=== PATIENT | female | born 1975 | race African-American/Black ===

== ENCOUNTER → 2022-11-22 12:30 | Outpatient (BNV) | payer OTHER, SELFPAY | PROVIDERS: Visit Provider Psychiatry & Neurology Psychiatry | DX: F43.11 Post-traumatic stress disorder, acute (principal); F32.2 Major depressive disorder, single episode, severe without psychotic features | CPT/HCPCS: 99214 ==

== ENCOUNTER 2022-11-29 12:30 | Outpatient (RCR) | payer OTHER, SELFPAY ==
[2022-11-22 11:42] VITALS: BMI 30.6
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
[2022-11-22 13:17] VITALS: BP 130/80; PULSE 82; TEMP 36.6
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
--- NOTE | 2022-11-23 17:10 | HO.PHP ---
Clients case was reviewed and opened today in treatment team.
--- NOTE | 2022-11-27 14:10 | HO.PHP ---
[facility] staff attempted to reach out to Diane to follow up with her regarding how she was doing since she left upset during the third group. Diane's phone went right to a busy tone and the clinician was unable to leave a message. [facility] staff will continue to make outreach attempts.
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
--- NOTE | 2022-11-28 08:30 | HO.PHP ---
[facility] staff faxed over referral for med management for Diane Khan. [facility] staff is awaiting scheduled appointment date and time.
--- NOTE | 2022-11-28 16:16 | HO.PHP ---
[facility] staff attempted to contact Diane's OP therapist Dr. Deven Allen. Dr. Allen's phone line did not have a VM attached for [facility] staff member to inform him of how Diane is doing with services.
--- NOTE | 2022-11-29 08:49 | HO.PHP ---
[facility] staff received a phone call from [facility], in which Katelynn, scheduled an appointment for Diane for med management on January 02, [address]23 at [address] [place] [id number].
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
--- NOTE | 2022-12-01 15:22 | HO.PHP ---
[facility] staff followed up with Diane to see how her day is going. Diane disclosed she is still feeling paranoid but is waiting for her therapist to return her call since he was meeting with a client. [facility] staff was receptive and suggested contacting crisis. Diane voiced that she wants to see what her therapist says and will contact back on her plan on if she goes to get evaluated. [facility] staff was receptive. Diane expressed no safety concerns when asked about SI.
--- NOTE | 2022-12-05 09:33 | PC.NURSE ---
Diane reports she is not feeing well this morning, c/o vomiting. I advised her to reach out to her doctor if symptoms persist or worsen. She stated she will. [facility] staff are aware.
--- NOTE | 2022-12-06 09:19 | PC.NURSE ---
Diane did not show up to the program today. I spoke to Diane who stated she just got off the phone with her therapist. She stated her therapist advised her to go back into the hospital thus she is getting ready to call her sister to bring her back to [facility] where she was previously hospitalized d/t depression sxs. Patient denied SI or thoughts to harm herself. She is looking to have her medication readjusted. [facility] staff is aware.
--- NOTE | 2022-12-06 15:00 | HO.PHP ---
[facility] staff followed up with Diane to see how she is doing since she did not attend program today. Diane mentioned that she is awaiting her therapist to contact her back to see if she needs to be hospitalized. [facility] staff was receptive and explored if she would be in attendance tomorrow. Diane mentioned that she doesn't believe she will be able to come tomorrow. [facility] staff voiced that if she is unable to come in tomorrow, we will have to discharge her from the program, due to missing a large portion of groups at this point. Diane was receptive. [facility] staff disclosed if she does not show up tomorrow, she wants her to know that the program is available for her when she is ready. Diane was receptive.
--- NOTE | 2022-12-06 15:15 | HO.PHP ---
[facility] staff followed up with Diane's OP therapist to explore if he has been in contact with Diane regarding hospitalization due to Daine stating that she is awaiting a call back from him. Diane's OP therapist stated that he encouraged Diane to go to the hospital this morning due to him having concerns about her and that he was informed by Diane that her sister was going to take her. [facility] staff noted that was not was just relayed when she spoke to Diane a short while ago. Diane's OP therapist mentioned he will reach out to her and have her contact the clinician on what the plan is. [facility] staff was receptive.
--- NOTE | 2022-12-06 15:30 | HO.PHP ---
[facility] staff received a call from Diane voicing that her therapist asked her to contact [facility]. [facility] staff explored with Diane what the next steps are going to be. Diane had mentioned that she is going to drive to the hospital. [facility] staff assessed if she will be driving herself to the hospital. Diane mentioned that her sister will be taking her. [facility] staff asked Diane if she can have her sisters number to follow up with her about the concerns. Diane paused and stated she doesn't want to provide the number but will have her sister reach out. [facility] staff was receptive and received verbal consent to talk to the sister. The nurse, qual field manager, and another clinician were present during this phone call.
--- NOTE | 2022-12-06 15:45 | HO.PHP ---
PHP staff waited 15 minutes for Diane's sister to reach out to the program. PHP staff did not receive a call, therefore Diane was contacted again due to the level of care Diane is receiving and to make sure she is safe. Diane did not answer the phone and a VM was left stating that the clinician has not received a phone call from the sister and she has concerns about her. PHP staff noted that she will have to review the situation with the team. [facility] staff encouraged her to call back.
--- NOTE | 2022-12-06 15:50 | HO.PHP ---
[facility] staff received a phone call from Diane's sister. [facility] staff informed Diane's sister about the concerns that have been presented around Diane's level of paranoia and wanted to explore if she will be taking her to the hospital tonight for further evaluation. Diane's sister disclosed that Diane stated that she will need a ride to the hospital on Sunday. [facility] staff noted that was not the plan that was relayed to her by Diane. Diane's sister mentioned she will have to call her back to make sure she is okay. [facility] staff explored if Diane's sister could go to her sister's house tonight and take her to the hospital. Diane's sister mentioned that she will go to the home tonight to check in with her. [facility] staff was receptive and thanked the sister for assisting in supporting her sister. Diane's sister was receptive.
--- NOTE | 2022-12-07 09:20 | HO.PHP ---
[facility] staff reached out to Diane due to her not showing up to the program. Diane did not answer the phone. [facility] staff left a voice message for Diane following up to see if Diane had made it to the hospital yesterday and mentioned due to her not presenting to program, the program will have to discharge services. [facility] staff encouraged Diane to contact her back so they could have a further conversation around discharge and safety. [facility] staff is awaiting a call back and will contact Emergency Contact if she does not hear from Diane within a 15 minute time span.
--- NOTE | 2022-12-07 09:46 | HO.PHP ---
[facility] staff reached out to Diane's emergency contact, Mouna Khan, due to Diane not attneding program and to check if Diane is safe and was brought to the hospital yesterday. Mouna voiced that she believes she is safe but wasn't certain. [facility] staff mentioned she spoke to Diane's sister yesterday and asked her if she would be able to follow up with the sister and contact the clinician back to see if Diane is safe and at the hospital. Mouna was receptive. [facility] staff is awaiting a phone call back.
--- NOTE | 2022-12-07 10:00 | HO.PHP ---
[facility] staff received a phone call back from Diane's emergency contact, Mouna, stating that she spoke to Diane's sister and she expressed that she was with Diane last night and she was presenting fine. [facility] staff explored if anyone has heard from Diane today. Mouna voiced that she has not and doesn't believe her sister has. oMuna suggested that [facility] staff contact Diane to see how she is doing. [facility] staff informed Mouna that Staff members have reached out and did not receive a call back which is why she is reaching out to her. Mouna was receptive and disclosed she will try to see if she can have Diane call. [facility] staff informed Mouna if Diane does not reach out, the program will have to do a wellness check. Mouna was receptive. [facility] staff is awaiting a phone call back from Diane.
--- NOTE | 2022-12-07 10:54 | PC.NURSE ---
Staff Janna and I reached out to Diane and left messages for her to call us back however she has not called us back. Janna reached out to her emergency product promoter sales person who is unable to get a hold of Diane. Per [facility] protocol I reached out to [place] [employer] and spoke to dispatcher Eddy and requested a wellness check. [place] [employer] will call me back regarding status of the patient and will have Diane call us as well. [facility] staff are aware.
--- NOTE | 2022-12-07 12:43 | PC.NURSE ---
I called [employer] to f/u on the Wellness check that I requested. I spoke to dispatcher Juan who stated they made contact with Diane and her therapist will be contacting the program. [facility] staff is aware.
== END 2022-12-07 23:59 | disposition home or self-care (01) ==
LOC: HO.PHPA 12:30
PROVIDERS: Visit Provider Psychiatry & Neurology Psychiatry
DX: F32.2 Major depressive disorder, single episode, severe without psychotic features (principal); F43.10 Post-traumatic stress disorder, unspecified; Z79.899 Other long term (current) drug therapy
CPT/HCPCS: 90791; 90853